=== PATIENT | male | born 1995 | race Caucasian/White ===

== ENCOUNTER 2018-02-19 11:51 | Emergency (ER) | payer MEDICAID, OTHER ==
[~2018-02-19] VITALS: Ht 177.8 cm; Wt 68.0 kg
[2018-02-19 12:05] VITALS: BP 138/74
--- NOTE | 2018-02-19 12:13 | NUR ---
PATIENT PRESENTS TO ED FOR MEDICATION REFILL. PATIENT STATES HE IS CURRENTLY WAITING TO BE SEEN BY A PSYCH BUT IS ABOUT TO RUN OUT OF MEDICATION, PROZAC AND SEROQUEL. PATIENT REPORTS HE IS BETWEEN INSURANCE PROVIDERS AND CANNOT GET REFILLS. PATIENT DENIES SUICIDAL IDEATION AT THIS TIME AND DENIES INTENT TO CAUSE HARM. DENIES N/V/D; SKIN IS PINK/WARM/DRY; AAOX4 WITH EVEN AND STEADY GAIT; HR EVEN AND REGULAR; PT DENIES ANY FEVER, CP, SOB, OR COUGH AT THIS TIME; PATIENT DENIES PAIN AT THIS TIME; VSS; PATIENT SITTING UP IN BED; BEDRAILS UP X1; BED DOWN. ER MD MADE AWARE OF PT STATUS.
[2018-02-19 13:00] VITALS: BP 131/63
--- NOTE | 2018-02-19 13:01 | NUR ---
Patient discharged with v/s stable. Written and verbal after care instructions given and explained. Patient alert, oriented and verbalized understanding of instructions. Ambulatory with steady gait. All questions addressed prior to discharge. ID band removed. Patient advised to follow up with PMD. Rx of SEROQUEL AND PROZAC given. Patient educated on indication of medication including possible reaction and side effects. Opportunity to ask questions provided and answered.
== END 2018-02-19 13:01 | disposition home or self-care (01) ==
LOC: MED 11:51
DX: F32.9 Major depressive disorder, single episode, unspecified (principal); Z76.0 Encounter for issue of repeat prescription
CPT/HCPCS: 99283

== ENCOUNTER 2018-04-21 20:32 | Emergency (ER) | payer OTHER ==
[~2018-04-21] VITALS: Ht 180.3 cm; Wt 72.6 kg
[2018-04-21 20:49] VITALS: BP 136/91
[2018-04-21] MEDS ORDERED: QUET100T PO (20:55)
[2018-04-21] MEDS ORDERED: FLUO10CA21 PO (20:56)
[2018-04-21 21:27] LABS: BASOPHILS # (AUTO) 0.1 K/uL (0.00-0.22); BASOPHILS % (AUTO) 0.9 % (0.0-2.0); EOSINOPHILS % (AUTO) 0.5 % (0.0-4.0); HEMATOCRIT 47.1 % (36-52); HEMOGLOBIN 16.1 g/dL (12.0-18.0); LYMPHOCYTES % (AUTO) 29.1 % (20.5-51.1); MEAN CORPUSCULAR HEMOGLOBIN 30 pg (27-31); MEAN CORPUSCULAR HGB CONC 34 g/dL (33-37); MEAN CORPUSCULAR VOLUME 88.8 fL (80-94); MONOCYTES # (AUTO) 0.4 K/uL (0.8-1.0); MONOCYTES % (AUTO) 5.4 % (1.7-9.3); NEUTROPHILS # (AUTO) 4.5 K/uL (1.8-7.7); NEUTROPHILS % (AUTO) 64.1 % (42.2-75.2); PLATELET COUNT (AUTO) 258 K/uL (140-450); RED BLOOD CELL COUNT(AUTO) 5.31 MIL/uL (4.20-6.10); RED CELL DISTRIBUTION WIDTH 12.3 % (11.6-13.7)
[2018-04-21 21:43] LABS: ANION GAP 14.1 (8-16); CARBON DIOXIDE 26.6 mmol/L (21-32); CHLORIDE 101 mmol/L (98-107); GFR ARICAN-AMERICAN 120 mL/min (>90); GLUCOSE 92 mg/dL (74-106); POTASSIUM 3.7 mmol/L (3.5-5.1); SODIUM SERUM 138 mmol/L (136-145); UREA NITROGEN, BLOOD 11 mg/dL (7-18)
[2018-04-21 21:45] LABS: APPEARANCE,URINE CLEAR (CLEAR); BILIRUBIN,URINE NEGATIVE (NEGATIVE); BLOOD, URINE TRACE-I (NEGATIVE); LEUKOCYTE ESTERASE ,URINE NEGATIVE (NEGATIVE); NITRITE, URINE NEGATIVE (NEGATIVE); PH,URINE 5.5 (5.0-9.0); UGLUCOSE NEGATIVE (NEGATIVE)
[2018-04-21 21:49] LABS: ALBUMIN 4.8 g/dL (3.4-5.0); ASPARTATE AMINOTRANSFERASE 141 U/L (15-37); SALICYLATE 3.3 mg/dL (2.8-20.0); TOTAL BILIRUBIN 0.5 mg/dL (0.0-1.0)
[2018-04-21 21:49] LABS: BARBITURATE, URINE NEG. ng/ml (NEG <=200); BENZODIAZEPINE, URINE NEG. ng/mL (NEG <=200); CANNABINOID, URINE NEG. ng/mL (NEG <=50); COCAINE, URINE NEG. ng/mL (NEG <=300); OPIATE, URINE NEG. ng/mL (NEG <=2000); PHENCYCLIDINE SCREEN,URINE NEG. ng/mL (NEG <=25)
[2018-04-21 22:09] LABS: COLOR,URINE STRAW (YELLOW)
[2018-04-21 22:10] LABS: RBC,URINE NONE SEEN /HPF (0-5); WBC,URINE NONE SEEN /HPF (0-5)
[2018-04-21 23:16] LABS: ACETAMINOPHEN < 0.5 ug/ml (10-30)
[2018-04-21 23:42] VITALS: BP 138/88
== END 2018-04-21 23:43 | disposition home or self-care (01) ==
LOC: MED 20:32
DX: R45.851 Suicidal ideations (principal); F17.200 Nicotine dependence, unspecified, uncomplicated
CPT/HCPCS: 36415; 80053; 80305; 81001; 85025; 99284; G0480; G0482